=== PATIENT | female | born 1995 | race Caucasian/White ===

== ENCOUNTER 2024-03-10 20:29 | Emergency (ER) | payer OTHER ==
[~2024-03-10] VITALS: Ht 157.5 cm; Wt 53.0 kg
[2024-03-10 20:42] VITALS: O2SAT 99
[2024-03-10] MEDS ORDERED: IBUP-2028 MT (22:57)
[2024-03-10 23:00] VITALS: BP 135/66; PULSE 78; RESP 16; TEMP 36.78072; O2SAT 100
== END 2024-03-10 23:10 | disposition home or self-care (01) ==
LOC: ER 20:29
DX: M25.531 Pain in right wrist (principal)
CPT/HCPCS: 73110; 99283